=== PATIENT | female | born 1945 | race Two or more races ===

== ENCOUNTER 2021-01-01 04:24 | Emergency (ER) | payer MEDICARE ==
[~2021-01-01] VITALS: Ht 147.3 cm; Wt 60.9 kg
--- NOTE | 2021-01-01 05:40 | PHYS DOC ---
Past Medical History Past Surgical History: Other Additional Past Surgical Histo: arms (AKI CASTELLANOS DO) Smoking Status: Never Smoker Alcohol Use: None (AKI CASTELLANOS DO) General Adult EDM: Chief Complaint: FEVER HPI: HPI: Patient is a 75 year old female with past medical history diabetes hypertension presents for evaluation of fever. Patient states that she went to sleep around 2245 and around 2345 she started to have diffuse chills. Patient states she woke up around 0330HRS feeling feverish. Patient states last Wednesday she started to have urinary frequency and dysuria. Patient states symptoms have continued since onset. Patient states she was evaluated for urinary tract infection by her primary care physician on Wednesday but has not received her results. Patient denies any headache chest pain shortness of breath or abdominal pain. Patient is currently afebrile with a temperature of 98.9. Patient has received her Covid vaccination. (AKI CASTELLANOS DO) Review of Systems: Review of Systems: Review of systems: Constitutional symptoms-positive fever positive chills Eyes- No Discharge, No Visual Loss Respiratory symptoms- No shortness of breath, No wheezing, No Dyspnea on Exertion Cardiovascular Systems; No chest pain, No Palpitations, No syncope Gastrointestinal symptoms: NO abdominal pain, no nausea, no vomiting or diarrhea. Genitourinary symptoms: Positive dysuria. Musculoskeletal symptoms: No back pain No extremity pain. NEUROLOGICAL Symptoms: No headache, no generalized weakness; No focal Weakness Skin: No rash. (AKI CASTELLANOS DO) Heart Score: C/O Chest Pain: N/A Risk Factors: Risk Factors: DM, Current or recent (<one month) smoker, HTN, HLP, family history of CAD, obesity. Risk Scores: Score 0 - 3: 2.5% MACE over next 6 weeks - Discharge Home Score 4 - 6: 20.3% MACE over next 6 weeks - Admit for Clinical Observation Score 7 - 10: 72.7% MACE over next 6 weeks - Early Invasive Strategies (AKI CASTELLANOS DO) Allergies: Allergies: Allergies Coded Allergies Type Severity Reaction Last Updated Verified No Known Drug Allergies 01/01/21 No (AKI CASTELLANOS DO) Physical Exam: PE: General: alert, no acute distress. Skin: warm, dry and intact, no erythema, no rash. HENT: bilateral external ears normal, oropharynx moist, nose normal. Head:: Normocephalic, atraumatic. Neck: Trachea midline. Eyes: EOMI, Normal conjunctiva, No drainage CARDIOVASCULAR: Regular rate and rhythm RESPIRATORY: No respiratory distress Back: Full range of motion. MUSCULOSKELETAL: Full range of motion of bilateral upper and lower extremities. GASTROINTESTINAL: Abdomen soft without rebound or guarding. NEUROLOGICAL: Alert and noted to person, place and time. No neurological deficits observed Psychiatric: Cooperative. Normal judgment (AKI CASTELLANOS DO) Current Patient Data: Vital Signs: Vital Signs Date Time Temp Pulse Resp B/P (MAP) Pulse Ox O2 Delivery O2 Flow Rate FiO2 01/01/21 05:08 98.9 102 18 123/64 (83) 95 Room Air 98.9 (AKI CASTELLANOS DO) EKG: EKG: [] (AKI CASTELLANOS DO) Radiology/Procedures: Radiology/Procedures: [] (AKI CASTELLANOS DO) Radiology/Procedures: IMAGING REPORT Signed PATIENT: RITESH HUFFMAN ACCOUNT: [id number] : 1945 LOCATION: ER AGE: 75 SEX: F EXAM STATUS: PRE ER ORD. PHYSICIAN: AKI CASTELLANOS DO REASON: fever PROCEDURE: CHEST AP ONLY EXAM: CHEST ONE VIEW. HISTORY: Fever. COMPARISON: None. FINDINGS: A frontal view of the chest is obtained. There are no confluent infiltrates. There are calcified granulomas on the right. There is no pneumothorax or pleural effusion. The heart is not enlarged. IMPRESSION: 1. No confluent infiltrates. Electronically signed by: Ryne Mcdonough MD (01/01/2021 6:28 AM) [facility] DICTATED and SIGNED BY: HERMAN MCDONOUGH MD DATE: 01/01/21 [id number] (NOEL LEAHY DO) Course & Med Decision Making: Course & Med Decision Making Pertinent Labs and Imaging studies reviewed. (See chart for details) [] Patient was evaluated for chief complaint. Work-up consisted of Covid and urinary analysis and chest Xray. Results pending at shift change. Patient signed out to Dr. Leahy. Disposition pending reevaluation and results. (AKI CASTELLANOS DO) Course & Med Decision Making COVID-19 CRITERIA: The patient was evaluated during the global COVID-19 pandemic, and that diagnosis was suspected/considered upon their initial presentation. Their evaluation, treatment and testing was consistent with current guidelines for patients who present with complaints or symptoms that may be related to COVID-19. Concern for fever, chills and dysuria with right-sided flank pain and intermittent nausea. I do suspect patient is borderline for pyelonephritis, urinalysis consistent with urinary tract infection. Rapid Covid test is neg ative. Chest x-ray does not show any infiltrates. Patient maintains above 90% and pulse oximetry. Patient with no respiratory distress or increased work of breathing. Patient is afebrile in the ED, HD stable, HR went from 102 to 89. is at bedside, (patient consents to his/her/their knowledge and involvement in pts' medical care). Will discharge home with strict ED return precautions were given for tractable nausea and vomiting, dehydration, chest pain, syncope, confusion or neurologic deficit. Encouraged urgent outpatient follow-up with PMD for reevaluation. Life-threatening processes were considered but are low suspicion at this time, given history, physical exam and ED workup. Pt was educated on all prescription medications and adverse effects. All patient's questions were answered and pt was stable at time of discharge. Life/limb-threatening differential includes but is not limited to, airway emergency or respiratory distress/ARDS or fatigue or head or neck swelling, toxidrome, sepsis/shock, angioedema, anaphylaxis, congestive heart failure, myocarditis, acute myocardial infarction, dysrhythmias, cardiomyopathy, venous thromboembolism, pulmonary emboli, acute necrotizing hemorrhagic encephalopathy ,cerebral venous thrombosis, meningitis, encephalitis or CVA. I have spoken with the patient and/or caregivers. I explained the patient's condition, diagnoses and treatment plan based on the information available to me at this time. I have answered the patient and/or caregiver's questions and add ressed any concerns. The patient and/or caregivers have a good understanding of patient's diagnosis, condition and treatment plan as can be expected at this point. Vital signs have been stable. Patient's condition is stable and appropriate for discharge from the emergency department. Patient will pursue further outpatient evaluation with primary care physician or other designated or consulting physician as outlined in the discharge instructions. The patient and/or caregivers are agreeable to this plan of care and follow-up instructions have been explained in detail. The patient and/or caregivers have received these instructions in written form and have expressed an understanding of the discharge instructions. The patient and/or caregivers are aware that any significant change of condition or worsening of symptoms should prompt immediate return to this or the closest emergency department or call to 911. (NOEL LEAHY DO) Dragon Disclaimer: Dragon Disclaimer: This electronic medical record was generated, in whole or in part, using a voice recognition dictation system. (AKI CASTELLANOS DO) Departure Departure Impression: Primary Impression: Fever Additional Impressions: Person under investigation for COVID-19 UTI (urinary tract infection) Disposition: HOME / SELF CARE / HOMELESS Condition: STABLE Referrals: JUANCHO ALMANZA MD Follow-up with your primary care physician in 2-3 days for re-evaluation OR FOLLOW UP WITH FAMILY MEDICINE: [address], [address] [place] [address] Patient Instructions: Fever, Urinary Tract Infection Additional Instructions: Return to ED immediately if your oxygen level drops below 90% (purchase a pulse oximetry at a medical supply store), difficulties breathing including rapid breathing or increased work of breathing (skin sucking under ribs), chest pain or stroke-like symptoms (facial droop, speech changes, arm/leg weakness). Return to ED if you should develop intractable nausea or vomiting, dehydration, worsening fever or mental status changes/confusion. You have been tested for or diagnosed with COVID-19. It is an infection caused by a new type of coronavirus. COVID-19 will cause cold-like or mild flu symptoms in most. It can cause more severe symptoms like problems breathing in some. There is no treatment for COVID-19. The body will clear the infection over time. Self-care will help to ease discomfort. Steps to Take: Self-Care Rest as needed. Healthy habits may help you feel better. Steps include: Choose healthy foods including fruits and vegetables. Drink water throughout the day. Get plenty of sleep each night. If you smoke, try to quit. It may ease breathing. Avoid alcohol. Keep Others Healthy The virus can spread to others. Droplets are released every time you sneeze or cough. The droplets can get into the mouth, nose, or eyes of people near you and lead to infection. To lower the chances of spreading COVID-19 to others: Stay at home until your doctor has said it is safe to leave. If you tested positive this will mean staying isolated until both of the following are true: At least 7 days have passed since the start of illness. You are free of fever for at least 72 hours without the use of medicine. During this time: - Avoid public areas, events, or transportation. Do not return to work or school until your doctor has said it is safe to do so. - Call ahead if you need to go to a medical center. Let them know you may have COVID-19. It will help them guide you where to go. They may also ask you to wear a facemask when you come to the office. - If you call for emergency medical services, let them know you may have COVID- 19. While at home: - Try to avoid close contact with others. Stay about 6 feet away. - If possible, spend most of your time in a separate room from others. - Use a face mask if you will be in close contact with others such as sharing a room or vehicle. - Have someone wipe down common surfaces in the home. Use household licensed master social worker every day on areas like doorknobs, counters, or sinks. - Cough or sneeze into a tissue. Throw the tissue away right after use. If a tissue is not available, cough or sneeze into your elbow. - Wash your hands often. Wash them after sneezing or coughing. Use soap and water and wash for at least 20 seconds. Alcohol based hand opening machine cleaner can be used if soap and water is not available. - Do not prepare food for others. Avoid sharing personal items like forks, spoons, or toothbrushes. - Avoid close contact with pets while you are sick. There is no evidence of the virus passing to pets. This is a safety step until more is known about this virus. Isolation can be frustrating. Social interaction can help. Keep in touch with friends and family through phone and tech options. You can still interact with others in your home, just keep a safe distance of about 6 feet. Follow-up: Your doctors office will check in with you to see if there are any changes in your health. You may be asked to keep track of symptoms to share with them. They will also let you know when you are clear to be in public again. Problems to Look Out For: Contact your doctor if your recovery is not going as you expect. Get emergency care if you have problems such as: - Trouble breathing - Nonstop chest pain or pressure - Changes in awareness, confusion, or problems waking - Lips or face have bluish color - Worsening of symptoms If you think you have an emergency, call for emergency medical services right away. As taken from [facility] Cephalexin (KEFLEX) 500 Mg Capsule 1 CAP PO BID for 7 Days, #14 CAP Prov: NOEL LEAHY DO 01/01/21 Ondansetron (ONDANSETRON ODT) 4 Mg Tab.rapdis 1 TAB PO PRN Q6-8HRS, #20 TAB Prov: NOEL LEAHY DO 01/01/21 AKI CASTELLANOS I DO Jan 01, 2021 05:40 NOEL LEAHY DO Jan 01, 2021 06:34
[2021-01-01 05:48] LABS: BILIRUBIN,URINE NEGATIVE (NEG); CLARITY,URINE CLEAR; COLOR,URINE YELLOW; NITRITE,URINE POSITIVE (NEG); PH,URINE 6.5 (<5.0-8.0); PROTEIN,URINE NEGATIVE (NEG-TRACE); UROBILINOGEN,URINE 0.2 mg/dL (0.2 mg/dL)
[2021-01-01 06:02] LABS: BACTERIA,URINE MODERATE /HPF (0-FEW); WBC,URINE >40 /HPF (0-4)
--- NOTE | 2021-01-01 06:31 | RAD ---
EXAM: CHEST ONE VIEW. HISTORY: Fever. COMPARISON: None. FINDINGS: A frontal view of the chest is obtained. There are no confluent infiltrates. There are calcified granulomas on the right. There is no pneumoth orax or pleural effusion. The heart is not enlarged. IMPRESSION: 1. No confluent infiltrates. Electronically signed by: Ryne Mcdonough MD (01/01/2021 6:28 AM) [facility]
[2021-01-01] MEDS ORDERED: CEPH500C PO (06:54)
[2021-01-01] MEDS ORDERED: ONDA4TAB12 PO (06:54)
[2021-01-01] MEDS ORDERED: ONDANSETRON PF 4 MG/2 ML VIAL. IVP ONE (07:00)
[2021-01-01] MEDS ORDERED: cefTRIAXone IV Push 1 GM VIAL. IVP ONE (07:00)
[2021-01-01 07:19] VITALS: BP 129/64
== END 2021-01-01 07:32 | disposition home or self-care (01) ==
LOC: ER 04:24
DX: N39.0 Urinary tract infection, site not specified (principal); Z20.822 Contact with and (suspected) exposure to COVID-19; E11.9 Type 2 diabetes mellitus without complications; I10 Essential (primary) hypertension
CPT/HCPCS: 71045; 81001; 87086; 87426; 99284; U0003; U0005